=== PATIENT | male | born 1965 | race Two or more races ===

== ENCOUNTER 2024-07-05 11:39 | Emergency (ER) | payer MEDICARE, MEDICAID ==
[~2024-07-05] VITALS: Ht 175.3 cm; Wt 59.1 kg
[2024-07-05 11:48] VITALS: BP 214/159; PULSE 71; RESP 16; O2SAT 99
[2024-07-05 13:14] VITALS: TEMP 99
== END 2024-07-05 13:17 | disposition home or self-care (01) ==
LOC: ER 11:39
DX: S61.201A Unspecified open wound of left index finger without damage to nail, initial encounter (principal); W19.XXXA Unspecified fall, initial encounter; Y93.89 Activity, other specified; Y92.89 Other specified places as the place of occurrence of the external cause; Y99.8 Other external cause status
CPT/HCPCS: 99281; A6222; A6258

== ENCOUNTER 2025-01-09 15:52 | Emergency (ER) | payer MEDICARE, MEDICAID ==
--- NOTE | 2025-01-09 16:04 | ELECTROCARDIOGRAPH REPORT ---
[facility] Test Date: 2025-01-09 Test Time: 16:03:06 Pat Name: LOY ESCALANTE Department: EMERGENCY ROOM [id number] Room: Gender: M Digital Communications Manager: : 1965 Requested By: MONICA WELCH Order Number: [id number] Reading MD: Dr. Monica Welch Measurements Intervals Collins Rate: 71 P: 58 CT: 179 QRS: 57 QRSD: 90 T: 32 QT: 375 QTc: 408 Interpretive Statements Sinus rhythm ST elevation, consider anterior injury Electronically Signed On 01-09-2025 16:43:[address] Monica Welch Please click the below link to view image of tracing.
--- NOTE | 2025-01-09 17:24 | RADIOLOGY REPORT ---
CHEST RADIOGRAPH Indication: ro pna Technique: Single frontal view of the chest was obtained Comparison: None FINDINGS: Lines and Tubes: None Lungs: No focal consolidation. Bronchovascular crowding due to low lung volumes with mild interstitia l prominence. Nonspecific tubular structures extending along the left hemithorax Pleura: No effusion. No pneumothorax. Cardiomediastinal contours: Mild cardiomegaly Bones: No acute osseous abnormality. IMPRESSION: Bronchovascular crowding due to low lung volumes. Underlying pulmonary vascular congestion can not b e excluded.
--- NOTE | 2025-01-09 18:18 | Physician Documentation ---
History of Present Illness ~ Chief Complaint: Cough Stated Complaint: CP Time Seen by MD: 17:05 Mode of Arrival: Wheelchair HPI Patient is seen today with complaints of cough for one week. Patient is seen today with his sister. 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 Patient states he does feel short of breath off and on but denies any significant shortness of breath currently. Patient main concern is that he is coughing up green phlegm over the last week. Patient denies any fevers or chills and denies any chest pain or abdominal pain or nausea, vomiting, diarrhea. Patient has no other concern or complaint at this time. He does admit to a little sore throat. Medication Reconciliation Allergies: Coded Allergies: No Known Allergies (Unverified , 07/05/24) Review of Systems Constitutional: Denies: chills, fever, weakness Eyes: Denies: pain, blurred vision ENT: Denies: ear pain, nose pain, throat pain, mouth pain Respiratory: Denies: cough, shortness of breath Cardiovascular: Denies: chest pain, palpitations Gastrointestinal: Denies: abdominal pain, nausea, vomiting Genitourinary: Denies: burning, dysuria Male Genitalia: Denies: penile discharge, testicular pain Neurological: Denies: headache, dizziness Musculoskeletal: Denies: pain, swelling Integumentary: Denies: rash, lesions Allergic/Immunologic: Denies: hives, itching Hematologic/Lymphatic: Denies: no symptoms reported Psychiatric: Denies: depression, anxiety Physical Exam Vital Signs: Temperature: 99.3, Source: Oral, Heart Rate: 72, Respiratory Rate: 16, BP: 128/68, Pulse Oximetry: 98 Oxygen Flow Rate: 0 Physical Exam General: Awake and Alert, no acute distress. HEENT: Conjunctiva pink, Sclera clear, Mucus Membranes moist. Neck: Supple without masses and tenderness. Resp: Unlabored. Lungs clear to auscultation bilaterally. I do not appreciate any rales, rhonchi or coarse breath sounds in any lung field. Heart: Regular Rate and rhythm, normal S1 and S2 without murmur, rub or gallop. 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 Skin: Warm and Dry. Progress Results/Orders Results/Orders Orders - CJ PERKINS R PAC Culture Blood (01/09/25 17:26) Saline Lock (01/09/25 17:26) Oxygen (01/09/25 17:26) Completed Orders - CJ PERKINS R PAC Cbc/Diff (01/09/25 17:26) BMP (01/09/25 17:26) PBNP (01/09/25 17:26) Lacticsepsis (01/09/25 17:26) Vital Signs 01/09/25 01/09/25 01/09/25 01/09/25 15:59 17:16 19:47 19:47 Temp 99.3 97.9 Pulse 72 60 Resp 16 16 B/P (MAP) 128/68 125/77 (93) Pulse Ox 98 97 O2 Flow Rate 0 0 Laboratory Tests Test 01/09/25 19:10 White Blood Count 10.4 Red Blood Count 4.68 L Hemoglobin 12.6 L Hematocrit 37.7 L Mean Corpuscular Volume 80.7 Mean Corpuscular Hemoglobin 27.0 Mean Corpuscular Hemoglobin Concent 33.5 Red Cell Distribution Width 14.1 Platelet Count 255 Mean Platelet Volume 8.9 Neutrophils (%) (Auto) 65.7 Lymphocytes (%) (Auto) 25.1 Monocytes (%) (Auto) 6.7 Eosinophils (%) (Auto) 1.8 Basophils (%) (Auto) 0.7 Neutrophils # (Auto) 6.8 Lymphocytes # (Auto) 2.6 Monocytes # (Auto) 0.7 Eosinophils # (Auto) 0.2 Basophils # (Auto) 0.1 CBC Comment Sodium Level 145 Potassium Level 4.0 Chloride Level 105 Carbon Dioxide Level 30.7 Anion Gap 9 Blood Urea Nitrogen 16 Creatinine 0.87 Estimated GFR/1.73 m2 90 BUN/Creatinine Ratio 18.4 Glucose Level 103 Lactic Acid Level 0.9 Calcium Level 8.9 Pro-B-Type Natriuretic Peptide 89 Albumin 3.5 Chemistry Comments EKG/XRAY/CT/US/VASC/MRI Chest X-Ray : Additional Comments DIAGNOSTIC RADIOLOGY Patient: LOY ESCALANTE Medical Record: [id number] [facility] : 1965, Age: 59 Sex: Male Location: ER Patient Status: REG ER Service Date/Time: 01/09/25/ 1611 Ordering Physician: MONICA WELCH MD Exam: CHEST,SINGLE VIEW CHEST RADIOGRAPH Indication: ro pna Technique: Single frontal view of the chest was obtained Comparison: None FINDINGS: Lines and Tubes: None Lungs: No focal consolidation. Bronchovascular crowding due to low lung volumes with mild interstitial prominence. Nonspecific tubular structures extending along the left hemithorax Pleura: No effusion. No pneumothorax. Cardiomediastinal contours: Mild cardiomegaly Bones: No acute osseous abnormality. IMPRESSION: Bronchovascular crowding due to low lung volumes. Underlying pulmonary vascular congestion can not be excluded. Electronically Signed by:AMISHA ZAYAS DO Date & Time: 01/09/251721 Dictated by: AMISHA ZAYAS DO Dictation date and time: 01/09/25 161 Primary Care Provider: NO PRIMARY CARE PROVIDER cc: MONICA WELCH MD ~ Medical Decision Making Findings Patient is seen today with complaints of cough for one week. Patient is seen today with his sister. 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 Patient states he does feel short of breath off and on but denies any significant shortness of breath currently. Patient main concern is that he is coughing up green phlegm over the last week. Patient denies any fevers or chills and denies any chest pain or abdominal pain or nausea, vomiting, diarrhea. Patient has no other concern or complaint at this time. He does admit to a little sore throat. Patient's labs did come back very unremarkable without any sign of leukocytosis and metabolic panel unremarkable. Patient's physical exam findings also largely unremarkable. Patient's chest x-ray did show poorly inflated lungs and there was no clearly identified infiltrate. Patient was offered admission and declined/refused at this time. Patient will be discharged home and will follow up with primary care in 2-5 days if no better as needed sooner. Return to ED with any worsening, concerning or changing symptoms. Shared decision-making utilized today with the patient in his sister. Departure Disposition: HOME / SELF CARE / HOMELESS Impression: Primary Impression: Cough Qualified Codes: R05.1 - Acute cough Condition: Stable Discharge Instructions: Cough, Adult Additional Instructions: Patient's labs did come back very unremarkable without any sign of leukocytosis and metabolic panel unremarkable. Patient's physical exam findings also largely unremarkable. Patient's chest x-ray did show poorly inflated lungs and there was no clearly identified infiltrate. Patient will be discharged home and will follow up with primary care in 2-5 days if no better as needed sooner. Return to ED with any worsening, concerning or changing symptoms. Shared decision-making utilized today with the patient in his sister. Referrals: NO PRIMARY CARE PROVIDER (PCP) Additional Comment Additional Comment Patient was offered admission but refused. Signature Scribe Signature: No scribe Attestation: No scribe CJ PERKINS PAC Jan 09, 2025 18:18
[2025-01-09 19:19] LABS: BASOPHILS # (AUTO) 0.1 X10'3 (0-0.2); BASOPHILS % (AUTO) 0.7 % (0-1); EOSINOPHILS # (AUTO) 0.2 X10'3 (0-0.9); EOSINOPHILS % (AUTO) 1.8 % (0-6); HEMATOCRIT 37.7 % (42.0-52.0); HEMOGLOBIN 12.6 g/dl (14.0-17.9); LYMPHOCYTES # (AUTO) 2.6 X10'3 (1.1-4.8); LYMPHOCYTES % (AUTO) 25.1 % (21-51); MEAN CORPUSCULAR HGB CONC 33.5 g/dL (33.0-36.5); MEAN CORPUSCULAR VOLUME 80.7 FL (78-98); MEAN PLATELET VOLUME 8.9 FL (7.4-10.4); MONOCYTES # (AUTO) 0.7 X10'3 (0-0.9); MONOCYTES % (AUTO) 6.7 % (2-12); NEUTROPHILS # (AUTO) 6.8 X10'3 (1.8-7.7); NEUTROPHILS % (AUTO) 65.7 % (42-75); PLATELET COUNT 255 X10'3 (140-440); RED BLOOD COUNT 4.68 X10'6 (4.70-6.10); RED CELL DISTRIBUTION WIDTH 14.1 % (11.5-14.5); WHITE BLOOD COUNT 10.4 X10'3 (4.5-11.0)
[2025-01-09 19:44] LABS: ALBUMIN 3.5 G/DL (3.4-5.0); ANION GAP 9 (8-16); BLOOD UREA NITROGEN 16 MG/DL (7-18); BUN/CREATININE RATIO 18.4 (10.0-20.0); CALCIUM 8.9 MG/DL (8.5-10.1); CHLORIDE 105 MMOL/L (99-107); CREATININE 0.87 MG/DL (0.60-1.10); GLUCOSE 103 MG/DL (70-104); PRO BRAIN NATRIURETIC PEPTIDE 89 PG/ML (0-125); SODIUM 145 MMOL/L (135-145); TOTAL CARBON DIOXIDE 30.7 MMOL/L (24-32); eGFR 90 ML/MIN
[2025-01-09 20:26] VITALS: BP 125/78; PULSE 62; RESP 16; TEMP 97.9; O2SAT 96
== END 2025-01-09 20:28 | disposition home or self-care (01) ==
LOC: ER 15:52
DX: R05.9 Cough, unspecified (principal); R06.02 Shortness of breath; Z86.73 Personal history of transient ischemic attack (TIA), and cerebral infarction without residual deficits
CPT/HCPCS: 36415; 71045; 80048; 83605; 83880; 85025; 87040; 93005; 99285

== ENCOUNTER 2025-06-12 15:59 | Emergency (ER) | payer MEDICARE, MEDICAID ==
[~2025-06-12] VITALS: Ht 175.3 cm; Wt 59.5 kg
[2025-06-12 16:33] VITALS: TEMP 97.9
[2025-06-12 18:20] VITALS: BP 122/73; PULSE 56; RESP 16; O2SAT 98
--- NOTE | 2025-06-12 18:31 | Physician Documentation ---
History of Present Illness ~ Chief Complaint: Hypotension Stated Complaint: CLINIC REFERRED Time Seen by MD: 17:18 [facility] Patient very pleasant 59-year-old male that presents to the emergency department for evaluation of hypotension per his primary care provider. Patient was seen at his primary care provider's office today primary care provider sent the patient over to be evaluated for low blood pressure. Patient's blood pressure is appropriate here in triage 2nd blood pressure was also appropriate. Denies any other symptoms at this time. Medication Reconciliation Allergies: Coded Allergies: No Known Allergies (Unverified , 06/12/25) Review of Systems ROS As stated above in the HPI, otherwise all systems are reviewed and negative. Physical Exam Vital Signs: Temperature: 97.9, Source: Temporal, Heart Rate: 56, Respiratory Rate: 16, BP: 122/73, Pulse Oximetry: 98, Weight: 59.500 Oxygen Flow Rate: 0 Physical Exam VITALS: Reviewed and as above. GENERAL: Alert, no apparent distress. HEENT: Normocephalic, atraumatic, PERRL, EOMI, dry mucosa, no erythema RESPIRATORY: Lungs clear, normal breath sounds, no respiratory distress. CHEST: No accessory muscle use, no retractions CV: Regular rate, rhythm, no edema, no murmur, No: JVD GI: Soft, non-tender, bowels sounds present, no rebound, guarding, or rigidity BACK: No CVA tenderness, or swelling MUSCULOSKELETAL No deformities, no edema SKIN: Warm and dry, no rash NEURO: Oriented x4, No motor or sensory deficit PSYCH: Normal mood and affect, no agitation Progress Results/Orders Results/Orders Vital Signs 06/12/25 06/12/25 16:33 18:20 Temp 97.9 Pulse 56 56 Resp 16 16 B/P (MAP) 112/64 122/73 (89) Pulse Ox 99 98 O2 Flow Rate 0 0 Medical Decision Making Additional information obtaine: other Findings 59-year-old male presented to the emergency department for evaluation of hypotension, accompanied by his Citizen [place]-speaking (who is Nauruan- proficient). The patient was referred by his primary care provider. Assessment: On arrival and throughout ED stay, blood pressure remained stable and appropriate (all readings >112 mmHg; current BP 122 mmHg). Patient is asymptomatic and explicitly denies fever, chills, nausea, vomiting, diarrhea, lightheadedness, chest pain, chest pressure, shortness of breath, or other complaints. No acute findings on examination or review of systems. No interventions or medications administered in the ED. Medical Decision-Making: No evidence of ongoing hypotension or acute pathology. No need for further diagnostic testing or acute therapy at this time. Patient is safe for discharge. Discharge Plan: Diagnosis: No acute illness identified; resolved hypotension. Prognosis: Favorable; no symptoms or abnormal findings. Instructions: Follow up with primary care provider for ongoing management and monitoring. Return to the ED immediately if experiencing any new symptoms, including lightheadedness, shortness of breath, chest pain, chest pressure, or any other abnormal feelings. Education: Discharge instructions provided verbally and in writing, with opportunity for questions. Patient and demonstrated understanding. Language: Discharge instructions reviewed in Nauruan; geodetic technician services offered as per best practices for non-Nauruan language-preferring patients. Care Coordination: Summary of ED visit and discharge plan communicated to primary care provider for continuity of care. Risk Assessment: No social or medical risk factors identified that would impede comprehension or adherence to discharge instructions. Patient and are aware of return precautions and follow-up needs. Disposition: Discharged home in stable condition. Differential Dx:Considerations: Include: dehydration, Delirium Tr., DKA, encephalopathy, hypercalcemia, HHNC, hypoglycemia, hypernatremia, hyponatremia, hypoxia, postictal, closed head injury, C-spine injury, CVA, mass lesion, subarachnoid hemorrhage, drug overdose, encephalopathy, ETOH intoxication, medication toxicity, infection - meningitis, infection - sepsis, infection - UTI, heart failure, renal failure, respiratory failure, hyperthermia, hypothermia, other Departure Disposition: 01 HOME / SELF CARE / HOMELESS Impression: Primary Impression: General medical exam Condition: Stable Additional Instructions: Thank you for coming to the emergency department today. You were evaluated for low blood pressure (hypotension). Your blood pressure was normal during your visit, and you do not have any symptoms or complaints right now. What was found: Your blood pressure is currently 122 mmHg, which is in a healthy range. No signs of infection, dehydration, or other problems were found. You do not need any new medications or treatments at this time. What to do next: Follow up with your primary care doctor as soon as possible to discuss your visit and continue monitoring your blood pressure. Keep track of any changes in how you feel, especially if you notice new symptoms. When to return to the emergency department: Come back right away if you have any of these symptoms: Lightheadedness or feeling faint Shortness of breath Chest pain or chest pressure Fast or irregular heartbeat Fever, chills, nausea, vomiting, or diarrhea Any other abnormal or concerning feelings How to stay safe at home: Drink enough fluids each day unless your doctor has told you otherwise. Stand up slowly from sitting or lying down to avoid feeling dizzy. Avoid very hot environments, like hot showers or saunas, which can lower blood pressure. If you feel weak or dizzy, sit or lie down right away. Language and understanding: If you prefer instructions in [place] or need help understanding these i nstructions, please ask. Therapist Asst services are available. If you have any questions, please call your doctor or return to the emergency department. Summary: You are being discharged in good health. Please follow up with your doctor and watch for any new symptoms. If you feel unwell, come back to the emergency department. Referrals: NO PRIMARY CARE PROVIDER (PCP) Education Educated: Patient Educated regarding: diagnosis, treatment, need for follow up Signature Scribe Signature: A Attestation: Scribed for Maye Blake by SAMARA Hogan . 06/12/25 18:31 MAYE BLAKE Jun 12, 2025 18:31
== END 2025-06-12 19:09 | disposition home or self-care (01) ==
LOC: ER 16:01
DX: Z00.00 Encounter for general adult medical examination without abnormal findings (principal); I95.9 Hypotension, unspecified
CPT/HCPCS: 99282